=== PATIENT | male | born 1955 | race Caucasian/White ===

== ENCOUNTER 2016-11-23 19:11 | Emergency (ER) | payer BC ==
[~2016-11-23] VITALS: Ht 182.9 cm; Wt 101.3 kg
[2016-11-23 20:48] LABS: BASOPHIL COUNT 0.1 K/uL (0-0.1); EOSINOPHIL (%) 1.3 % (0-5); EOSINOPHIL COUNT 0.1 K/uL (0-0.3); HEMATOCRIT 40.6 % (38.0-50.0); IMMATURE GRANULOCYTE (%) 0.3 % (0.0-0.7); INSTRUMENT ABS NEUTROPHIL CT 4.1 K/uL; LYMPHOCYTE COUNT 2.7 K/uL (1.0-2.8); MCH 27.6 PG (29.0-34.0); MCHC 32.8 G/DL (30.0-36.0); MCV 84.2 FL (86-99); MEAN PLAT.VOLUME 12.1 uM^3 (9.0-12.4); MONOCYTE (%) 10.4 % (3-12); MONOCYTE COUNT 0.8 K/uL (0-0.8); NEUTROPHIL (%) 52.2 % (45-76); NEUTROPHIL COUNT 4.1 K/uL (1.8-6.4); PLATELET COUNT 181 K/uL (156-360); RBC DIS.WIDTH-CV 12.7 % (11.8-14.6); RBC DIS.WIDTH-SD 39.3 % (39-53); RED BLOOD COUNT 4.82 M/uL (4.00-5.50); WHITE BLOOD COUNT 7.9 K/uL (4.1-10.2)
[2016-11-23 21:04] LABS: CHLORIDE 103 mEq/L (99-109); SODIUM 142 mEq/L (136-147)
[2016-11-23 21:06] LABS: GLUCOSE 104 mg/dL (70-99)
[2016-11-23 21:07] LABS: ANION GAP 16 MEQ/L (2-14)
[2016-11-23 21:10] LABS: GFR ESTIMATE (CALCULATED) > 59 mL/min/
[2016-11-23 21:11] LABS: UREA NITROGEN (BUN) 19 mg/dL (9-23)
[2016-11-23 21:56] VITALS: BP 155/89
== END 2016-11-23 21:57 | disposition designated cancer center or children's hospital, planned readmission (85) ==
LOC: TRA 19:11 → EME 19:11 → TRA 21:57
PROVIDERS: Emergency Medicine
DX: T23.251A Burn of second degree of right palm, initial encounter (principal); T22.211A Burn of second degree of right forearm, initial encounter; T21.21XA Burn of second degree of chest wall, initial encounter; T23.252A Burn of second degree of left palm, initial encounter; T20.27XA Burn of second degree of neck, initial encounter; T20.211A Burn of second degree of right ear [any part, except ear drum], initial encounter; T23.212A Burn of second degree of left thumb (nail), initial encounter; T21.11XA Burn of first degree of chest wall, initial encounter; T21.12XA Burn of first degree of abdominal wall, initial encounter; T22.10XA Burn of first degree of shoulder and upper limb, except wrist and hand, unspecified site, initial encounter; T20.03XA Burn of unspecified degree of chin, initial encounter; T31.11 Burns involving 10-19% of body surface with 10-19% third degree burns; W40.8XXA Explosion of other specified explosive materials, initial encounter; Z72.0 Tobacco use
CPT/HCPCS: 80048; 85025; 99281; 99285; J2270; J2405; J7030